=== PATIENT | male | born 1995 ===

== ENCOUNTER 2020-08-23 17:17 | Outpatient (REF) | payer OTHER, SELFPAY ==
[2020-08-25 15:43] LABS: Chlamydia Result Negative (Negative); GC Result Negative (Negative)
== END 2020-08-23 17:37 ==
LOC: NCHCN 17:17
PROVIDERS: Visit Provider Nurse Practitioner Family
DX: R30.9 Painful micturition, unspecified (principal)
CPT/HCPCS: 87491; 87591